=== PATIENT | female | born 2000 | race Caucasian/White ===

== ENCOUNTER 2019-09-11 13:42 | Emergency (ER) | payer MEDICAID, OTHER ==
[~2019-09-11] VITALS: Ht 152.4 cm; Wt 103.3 kg
[2019-09-11 13:57] VITALS: BP 115/65
[2019-09-11] MEDS ORDERED: ONDANSETRON PF 4 MG/2 ML VIAL. IVP ONE (14:00)
[2019-09-11] MEDS ORDERED: IV NORMAL SALINE 1,000ML 1,000 ML IV ONE (14:00)
--- NOTE | 2019-09-11 14:43 | PHYS DOC ---
Past History Past Medical History: Asthma Past Surgical History: No Surgical History Alcohol Use: None General Adult EDM: Chief Complaint: DIZZY/LIGHT HEADED HPI: HPI: 19-year-old female presents with dizziness and near syncope. The patient was feeling lightheaded yesterday at the store. She got a cold drink and just went home and assumed was related to the heat. She slept last night. When she woke up this morning she was feeling lightheaded again and decided to take a cool shower. While she was in the shower he became weak and slowly fell to the ground. Her kept her from hurting herself. The patient is 12 weeks . She denies abdominal pain or vaginal discharge or vaginal bleeding. This is her first . She states that she is drinking 5 or 6 bottles of water a day. She has had no nausea, vomiting, chest pain, shortness of breath. Review of Systems: Review of Systems: Constitutional: Denies fever or chills Eyes: Denies change in visual acuity HENT: Denies nasal congestion or sore throat Respiratory: Denies cough or shortness of breath Cardiovascular: Denies chest pain or edema GI: Denies abdominal pain, nausea, vomiting, bloody stools or diarrhea : Denies dysuria Musculoskeletal: Denies back pain or joint pain Integument: Denies rash Neurologic: Dizziness. Denies headache, focal weakness or sensory changes Endocrine: Denies polyuria or polydipsia Lymphatic: Denies swollen glands Psychiatric: Denies depression or anxiety Heart Score: Risk Factors: Risk Factors: DM, Current or recent (<one month) smoker, HTN, HLP, family history of CAD, obesity. Risk Scores: Score 0 - 3: 2.5% MACE over next 6 weeks - Discharge Home Score 4 - 6: 20.3% MACE over next 6 weeks - Admit for Clinical Observation Score 7 - 10: 72.7% MACE over next 6 weeks - Early Invasive Strategies Current Medications: Current Meds: Current Medications Medications (Trade) Dose Ordered Sig/Mariana Start Time Stop Time Status Last Admin Dose Admin Ondansetron HCl (Zofran) 4 mg 1X ONCE 09/11/19 14:00 09/11/19 14:08 DC 09/11/19 14:00 4 MG Sodium Chloride 1,000 ml @ 1,000 mls/hr 1X ONCE 09/11/19 14:00 09/11/19 14:59 09/11/19 14:00 1,000 MLS/HR Allergies: Allergies: Allergies Coded Allergies Type Severity Reaction Last Updated Verified blueberry Allergy Severe 09/11/19 Yes mushroom Allergy Severe 09/11/19 Yes bee venom protein (honey bee) Adverse Reaction Severe BEE STINGS 09/11/19 Yes Physical Exam: PE: Constitutional: Well developed, obese, well nourished, no acute distress, non- toxic appearance. [] HENT: Normocephalic, atraumatic, bilateral external ears normal, oropharynx moist, no oral exudates, nose normal. [] Eyes: PERRLA, EOMI, conjunctiva normal, no discharge. [] Neck: Normal range of motion, no tenderness, supple, no stridor. [] Cardiovascular:Heart rate regular rhythm, no murmur [] Lungs & Thorax: Bilateral breath sounds clear to auscultation [] Abdomen: Bowel sounds normal, gravid uterus, no masses, no pulsatile masses. [] Skin: Warm, dry, no erythema, no rash. [] Back: No tenderness, no CVA tenderness. [] Extremities: No tenderness, no cyanosis, no clubbing, ROM intact, no edema. [] Neurologic: Alert and oriented X 3, normal motor function, normal sensory function, no focal deficits noted. [] Psychologic: Affect normal, judgement normal, mood normal. [] Current Patient Data: Vital Signs: Vital Signs Date Time Temp Pulse Resp B/P (MAP) Pulse Ox O2 Delivery O2 Flow Rate FiO2 09/11/19 13:57 98.3 98 22 115/65 (82) 96 EKG: EKG: [] Radiology/Procedures: Radiology/Procedures: [] Course & Med Decision Making: Course & Med Decision Making Pertinent Labs and Imaging studies reviewed. (See chart for details) The patient has been given a liter of normal saline and 4 mg Zofran. The patient's labs are unremarkable. Her urinalysis is significant for white cells and bacteria. There are clue cells seen. This indicates bacterial vaginosis. The patient is therefore I will treat her. I will give her a pr escription for metronidazole 500 mg twice daily for 7 days. She is stable for discharge at this time. [] Dragon Disclaimer: Dragon Disclaimer: This electronic medical record was generated, in whole or in part, using a voice recognition dictation system. Departure Departure: Impression: Primary Impression: Qualified Codes: Z3A.12 - 12 weeks gestation of Additional Impression: Bacterial vaginosis Disposition: HOME/RESIDENCE PRIOR TO ADM Condition: STABLE Referrals: PCP,NO (PCP) Patient Instructions: Bacterial Vaginosis, [id number] Scripts Metronidazole (FLAGYL) 500 Mg Tablet 1 TAB PO BID for bacterial vaginosis for 7 Days, #14 TAB Prov: ASHLEE GARCIA DO 09/11/19 Justification of Admission: Justification of Admission: Justification of Admission Dx: N/A ASHLEE GARCIA DO Sep 11, 2019 14:43
[2019-09-11 14:47] LABS: BASO % 0 % (0-3); EOS # 0.1 x10^3/uL (0.0-0.7); EOS % 1 % (0-3); HEMATOCRIT 34.8 % (36.0-47.0); HEMOGLOBIN 11.2 g/dL (12.0-15.5); LYMPH # 1.8 x10^3/uL (1.0-4.8); LYMPH % 17 % (24-48); MEAN CORPUSCULAR HEMOGLOBIN 24 pg (25-35); MEAN CORPUSCULAR HGB CONC 32 g/dL (31-37); MEAN CORPUSCULAR VOLUME 75 fL (79-100); MONO # 0.6 x10^3/uL (0.0-1.1); MONO % 5 % (0-9); NEUT # 7.9 x10^3uL (1.8-7.7); NEUT % 76 % (31-73); PLATELET COUNT 360 x10^3/uL (140-400); RED BLOOD COUNT 4.64 x10^6/uL (3.50-5.40); WHITE BLOOD COUNT 10.3 x10^3/uL (4.0-11.0)
[2019-09-11 16:05] LABS: AMPHETAMINE/METHAMPHETAMINE NEG (NEG); BARBITURATES NEG (NEG); BENZODIAZEPINES NEG (NEG); CANNABINOIDS NEG (NEG); COCAINE NEG (NEG); METHADONE NEG (NEG); OPIATES NEG (NEG); PHENCYCLIDINE NEG (NEG)
[2019-09-11 16:06] LABS: CALCIUM 8.7 mg/dL (8.5-10.1); CREATININE 0.7 mg/dL (0.6-1.0); GFR 105.6
[2019-09-11 16:09] LABS: BILIRUBIN,URINE NEG (NEG); CLARITY,URINE CLOUDY; COLOR,URINE YELLOW; GLUCOSE,URINE NEG (NEG); NITRITE,URINE NEG (NEG); UROBILINOGEN,URINE 0.2 mg/dL (0.2 mg/dL)
[2019-09-11 16:10] LABS: BACTERIA,URINE MANY /HPF (0-FEW); SQUAMOUS EPITHELIAL CELL,UR MANY /LPF
[2019-09-11 16:12] LABS: ALBUMIN 2.8 g/dL (3.4-5.0); ALBUMIN/GLOBULIN RATIO 0.6 (1.0-1.7); TOTAL BILIRUBIN 0.3 mg/dL (0.2-1.0); TOTAL PROTEIN 7.3 g/dL (6.4-8.2)
[2019-09-11] MEDS ORDERED: METR500T PO (16:19)
== END 2019-09-11 16:36 | disposition home or self-care (01) ==
LOC: ER 13:42
DX: O23.591 Infection of other part of genital tract in pregnancy, first trimester (principal); B96.89 Other specified bacterial agents as the cause of diseases classified elsewhere; O99.511 Diseases of the respiratory system complicating pregnancy, first trimester; J45.909 Unspecified asthma, uncomplicated; Z3A.12 12 weeks gestation of pregnancy; Z91.018 Allergy to other foods; Z91.030 Bee allergy status
CPT/HCPCS: 36415; 80053; 80307; 81001; 85025; 87086; 96361; 96374; 99283; J2405; J7030

== ENCOUNTER 2019-09-30 02:43 | Emergency (ER) | payer OTHER ==
[~2019-09-30] VITALS: Ht 172.7 cm; Wt 100.9 kg
[~2019-09-30 02:43] MED LIST: METR500T PO
[2019-09-30 03:02] VITALS: BP 108/81
[2019-09-30] MEDS ORDERED: IV NORMAL SALINE 1,000ML 1,000 ML IV ONE (03:30)
[2019-09-30] MEDS ORDERED: METOCLOPRAMIDE HCL 10 MG/2 ML VIAL. IVP ONE (03:30)
[2019-09-30] MEDS ORDERED: ACETAMINOPHEN 500 MG TABLET PO ONE (03:30)
--- NOTE | 2019-09-30 03:53 | PHYS DOC ---
Past History Past Medical History: Asthma, Other Additional Past Medical Histor: vaginitis Past Surgical History: No Surgical History Alcohol Use: None Adult General Chief Complaint Chief Complaint: HEADACHE HPI HPI Patient is a 19-year-old female who presents for headache. Onset was 3 days ago without any known inciting event or trauma. Nothing known makes better or worse. Patient reports classic symptoms of tension-like headache that is bandlike and feels like her head is tightening. Reports she has had sporadic episodes of similar headaches in the past that typically resolved with OTC pain medication. Nonetheless, given that symptoms have been constant since onset, patient reportedly called her MARKETING REPORTING ANALYST early this morning and was advised to take OTC Tylenol. Patient took x1 unknown dose of OTC Tylenol (I suspect 500 mg or 650 mg) prior to arrival but given that she did not receive significant relief from this, patient reported to our ER for further evaluation. Patient has history of mental health diagnoses but denies any formal history of hypertension, or migraine. She reports being 14 weeks and only takes daily vitamins at this time. Denies any illicit drug abuse or smoking. Denies any recent febrile illness, vision changes, chest pain, shortness of breath, abdominal pain, changes in bladder or bowel habits, recent COVID-19 exposure, or any motor/sensory/neurological changes. Review of Systems Review of Systems Fourteen body systems of review of systems have been reviewed. See HPI for pertinent positives and negative responses, other lr all other systems are negative, non-pertinent or non-contributory Current Medications Current Medications Current Medications Medications (Trade) Dose Ordered Sig/Mariana Start Time Stop Time Status Last Admin Dose Admin Acetaminophen (Tylenol) 1,000 mg 1X ONCE 09/30/19 03:30 09/30/19 03:31 Metoclopramide HCl (Reglan Vial) 10 mg 1X ONCE 09/30/19 03:30 09/30/19 03:31 Sodium Chloride 1,000 ml @ 1,000 mls/hr 1X ONCE 09/30/19 03:30 09/30/19 04:29 Allergies Allergies Allergies Coded Allergies Type Severity Reaction Last Updated Verified blueberry Allergy Severe 09/11/19 Yes mushroom Allergy Severe 09/11/19 Yes bee venom protein (honey bee) Adverse Reaction Severe BEE STINGS 09/11/19 Yes Physical Exam Physical Exam Constitutional: Well developed, well nourished, no acute distress, non-toxic appearance. HENT: Normocephalic, atraumatic, bilateral external ears normal, oropharynx moist, no oral exudates, nose normal. Eyes: PERRLA, EOMI, conjunctiva normal, no discharge. Neck: Normal range of motion, mild tenderness to bilateral paracervical muscles without midline tenderness or step-offs, supple, no stridor. Cardiovascular: Heart rate regular, sinus rhythm, no murmurs rubs or gallops Lungs & Thorax: Bilateral breath sounds clear to auscultation Abdomen: Bowel sounds normal, gravid abdomen, soft, no tenderness, no masses, no pulsatile masses. Nonsurgical abdomen, no peritoneal signs Skin: Warm, dry, no erythema, no rash. Back: No tenderness, no CVA tenderness. Extremities: No tenderness, no cyanosis, no clubbing, ROM intact, no edema. Neurologic: Alert and oriented X 3, grossly normal motor & sensory function, no focal deficits noted. Cranial nerves II through XII intact Psychologic: Affect normal, judgement normal, mood normal. Current Patient Data Vital Signs Vital Signs Date Time Temp Pulse Resp B/P (MAP) Pulse Ox O2 Delivery O2 Flow Rate FiO2 09/30/19 03:02 98.7 106 18 108/81 (90) 98 Room Air EKG EKG [] Radiology/Procedures Radiology/Procedures [] Course & Med Decision Making Course & Med Decision Making Ambulatory and well-appearing patient seen on rooming to ER Airway patent, breathing unlabored, unremarkable vitals and heart rate tones (148), IV access obtained Comprehensive history and physical elicited, decision made to fluid resuscitate with 1L NS, administer 1 g Tylenol p.o. and additional 10 mg IV Reglan Given presenting symptoms, physical exam findings, and improvement in symptoms to above therapy, discussed limited role in further work-up and/or intervention At this time, patient nearly symptom-free and feels fit for discharge home with close MARKETING REPORTING ANALYST follow-up in outpatient setting Strict return precautions discussed at length with good understanding by patient, all questions and concerns addressed prior to ER departure Patient discharged in stable condition home with instructions for close PCP/OBGYN follow-up in upcoming 1 to 7 days for further outpatient management of increased frequency of tension-like headaches Dragon Disclaimer Dragon Disclaimer This electronic medical record was generated, in whole or in part, using a voice recognition dictation system. Departure Departure: Impression: Primary Impression: headache in second trimester Disposition: 01 HOME/RESIDENCE PRIOR TO ADM Condition: IMPROVED Referrals: ROWAN HUBER MD (PCP) Patient Instructions: - Second Trimester Justification of Admission: Justification of Admission: Justification of Admission Dx: N/A RYAN POON DO Sep 30, 2019 03:53
== END 2019-09-30 04:35 | disposition home or self-care (01) ==
LOC: ER 02:43
DX: O26.892 Other specified pregnancy related conditions, second trimester (principal); R51 Headache; J45.909 Unspecified asthma, uncomplicated; Z3A.14 14 weeks gestation of pregnancy; Z91.018 Allergy to other foods; Z91.030 Bee allergy status
CPT/HCPCS: 96361; 96374; 99283; J2765; J7030; 99284-25